=== PATIENT | male | born 1955 | race Hispanic/Latino ===

== ENCOUNTER 2017-06-08 20:21 | Emergency (ER) | payer BC, OTHER ==
[~2017-06-08] VITALS: Ht 167.6 cm; Wt 83.9 kg
[~2017-06-08 20:21] MED LIST: GLIPIZIDE5 MG PO; METFORMIN HCL500 MG PO
--- NOTE | 2017-06-08 21:26 | Diagnostic Imaging Report ---
EXAMINATION: CHEST 2 VIEWS INDICATION: Cough. COMPARISON: None FINDINGS: TUBES and LINES: None. LUNGS: Lungs are well inflated. Lungs are clear. There is no evidence of pneumonia or pulmonary edema. PLEURA: No pleural effusion or pneumothorax. HEART AND MEDIASTINUM: The cardiomediastinal silhouette is unremarkable. BONES AND SOFT TISSUES: No acute osseous lesion. Soft tissues are unremarkable. UPPER ABDOMEN: No free air under the diaphragm. IMPRESSION: No acute thoracic abnormality. Signed by: Dr. Fabio Marroquin M.D. on 06/08/2017 9:23 PM
== END 2017-06-08 21:58 | disposition home or self-care (01) ==
LOC: ER 20:21
DX: R05 Cough (principal); J30.1 Allergic rhinitis due to pollen
CPT/HCPCS: 71046; 99283